=== PATIENT | male | born 1985 | race African-American/Black ===

== ENCOUNTER 2022-03-20 17:53 | Emergency (ER) | payer OTHER ==
[~2022-03-20] VITALS: Ht 182.9 cm; Wt 104.3 kg
[2022-03-20] MEDS ORDERED: HYDROCODON-ACE1 EA10 PO (21:18)
[2022-03-20] MEDS ORDERED: SILVADENE20 GM TOP (21:18)
== END 2022-03-20 23:24 | disposition home or self-care (01) ==
LOC: ED 17:53
DX: S30.811A Abrasion of abdominal wall, initial encounter (principal); S20.311A Abrasion of right front wall of thorax, initial encounter; S60.512A Abrasion of left hand, initial encounter; S60.511A Abrasion of right hand, initial encounter; V59.9XXA Occupant (driver) (passenger) of pick-up truck or van injured in unspecified traffic accident, initial encounter
CPT/HCPCS: 36415; 70450; 71260; 72125; 73130; 74177; 80053; 82150; 82553; 83605; 83690; 85025; 86850; 86900; 86901; 90715; 96374; 96375; 99284-25; A9270; G0480; J1170; J2405; Q9967